=== PATIENT | male | born 1995 | race Two or more races ===

== ENCOUNTER 2017-05-09 14:41 | Emergency (ER) | payer OTHER ==
[2017-05-09 15:18] VITALS: RESP 16; TEMP 98.1
[2017-05-09] MEDS ORDERED: NS 1,000 ML IV ONE (16:06)
[2017-05-09] MEDS ORDERED: HYOSCYAMINE SULFATE 0.125 MG TAB PO ONE (16:06)
[2017-05-09] MEDS ORDERED: MAG HYDROX/AL HYDROX/SIMETH 30 ML UDCUP PO ONE (16:06)
--- NOTE | 2017-05-09 16:11 | EDPHY ---
H & P Stated Complaint: n/v/d 2/ Time Seen by Provider: 05/09/17 16:10 HPI/ROS: HPI: This is a 21-year-old male who presents with Chief Complaint: Nausea vomiting diarrhea Location: GI Quality: Nausea vomiting diarrhea Duration: 2 days Signs and Symptoms: no fever, + nausea, + vomiting, no hematemesis, no blood in stool, no abdominal bloating, + diarrhea, no back pain, no urinary symptoms, no testicular/groin pain, no indigestion, no chest pain, no shortness of breath Timing: Acute, improving Severity: Moderate Context: Patient is a student at presents with complaints of nausea starting Sunday accompanied by vomiting x5 and diarrhea times 10 over the last several days, he reports that his symptoms have improved and he is no longer vomiting for the last 36 hr. His last bowel movement was this morning. Denies any hematemesis/blood in his stool. He reports that his stomach feels ascitic and he gets nauseous when he drinks water. He miss class yesterday and today and is requesting school excuse. No history of abdominal surgery. Currently denies any fever/abdominal pain/testicular pain/dysuria. Denies any recent foreign travel/antibiotic use. Modifying Factors: None Comment: ROS: see HPI Constitutional: No fever, no chills, no weight loss Eyes: No blurred vision Respiratory: No shortness of breath, no cough Cardiovascular: No chest pain, no palpitations Gastrointestinal: + nausea, + vomiting, + diarrhea, no hematemesis, no blood in stool Genitourinary: No dysuria, no blood in urine Extremities: No myalgias, no edema Neurologic: No weakness, no numbness Skin: No rashes, no petechiae Hematologic: No bruising, no bleeding MEDICAL/SURGICAL/SOCIAL HISTORY: Medical history: Generally healthy. Does not take any regular medications. Surgical history: Denies Social history: Student. CONSTITUTIONAL: Extremely well-appearing male, awake and alert, no obvious distress HEENT: Atraumatic and normocephalic, PERRL, EOMI. Tympanic membranes clear. Oropharynx clear, no exudate and moist pink mucosa. Airway patent. No lymphadenopathy. No meningismus. Cardiovascular: Normal S1/S2, regular rate, regular rhythm, without murmur rub or gallop. PULMONARY/CHEST: Symmetrical and nontender. Clear to auscultation bilaterally. Good air movement. No accessory muscle usage. ABDOMEN: Soft, nondistended, nontender, no rebound, no guarding, no peritoneal signs, no masses or organomegaly. No CVAT. EXTREMITIES: 2/2 pulses, strength 5/5, no deformities, no clubbing, no cyanosis or edema. NEUROLOGICAL: no focal neuro deficits. GCS 15. SKIN: Warm and dry, no erythema. no rash. Good capillary refill. Source: Patient Exam Limitations: No limitations - Personal History Current Tetanus/Diphtheria Vaccine: Unsure Current Tetanus Diphtheria and Acellular Pertussis (TDAP): Unsure - Medical/Surgical History Hx Asthma: Yes Hx Chronic Respiratory Disease: No Hx Diabetes: No Hx Cardiac Disease: No Hx Renal Disease: No Hx Cirrhosis: No Hx Alcoholism: No Hx HIV/AIDS: No Hx Splenectomy or Spleen Trauma: No Other PMH: asthma - Social History Smoking Status: Current every day smoker Constitutional: Initial Vital Signs Temperature (C) 36.7 C 05/09/17 15:16 Heart Rate 67 05/09/17 15:16 Respiratory Rate 16 05/09/17 15:16 Blood Pressure 131/81 H 05/09/17 15:16 O2 Sat (%) 97 05/09/17 15:16 O2 Delivery Mode Room Air Allergies/Adverse Reactions: No Known Allergies Allergy (Unverified 05/09/17 15:16) Home Medications: Medication Instructions Recorded Ondansetron Odt [Zofran Odt 4 mg 4 mg PO Q4 PRN #12 tab 05/09/17 (*)] Medical Decision Making ED Course/Re-evaluation: IV fluids, IV medications, oral medications ordered Given 1 L normal saline, p.o. Zofran, p.o. Maalox and Levsin with moderate relief of symptoms Abdomen is soft and nontender without pain. Low yield for surgical abdomen. No indication for imaging. Vital signs reviewed upon arrival in stable. 1655: Reassessed patient: Abdomen is still soft and nontender. Passed p.o. trial prior to discharge. School excuse provided per request. This patient was seen under the supervision of my secondary supervising physician. I evaluated care for this patient independently. Differential Diagnosis: Abdominal pain including but not limited to appendicitis, cholecystitis, gastroenteritis, gastritis and urinary tract infection. - Data Points Medications Given: Discontinued Medications Al Hydroxide/Mg Hydroxide (Maalox Susp) 30 ml PO ONCE ONE Stop: 05/09/17 16:07 Last Admin: 05/09/17 16:17 Dose: 30 ml Hyoscyamine Sulfate (Levsin, Hyomax-Sl) 0.25 mg PO ONCE ONE Stop: 05/09/17 16:07 Last Admin: 05/09/17 16:17 Dose: 0.25 mg Sodium Chloride (Ns) 1,000 mls @ 0 mls/hr IV EDNOW ONE; Wide Open PRN Reason: Protocol Stop: 05/09/17 16:07 Last Admin: 05/09/17 16:13 Dose: 1,000 mls Ondansetron HCl (Zofran) 4 mg IVP EDNOW ONE Stop: 05/09/17 16:20 Last Admin: 05/09/17 16:20 Dose: 4 mg Departure - Departure Disposition: Home, Routine, Self-Care Clinical Impression: Viral gastroenteritis Condition: Good Instructions: Gastroenteritis (ED) Additional Instructions: Consume a minimum of 8-10 glasses of water or electrolyte fluid replacement drinks that include Gatorade, Powerade, Pedialyte. Eat a bland diet for the next 48 hours and then slowly advance as tolerated. Take Zofran 1 tab every 4 hours as needed for nausea, vomiting. Return to the Emergency Room if symptoms do not resolve in the next 48-72 hours , you spike a fever > 102 F, or experience intractable abdominal pain/nausea/ vomiting. Referrals: [facility],. [Clinic] - As per Instructions Stand Alone Forms: School Excuse Prescriptions: Ondansetron Odt [Zofran Odt 4 mg (*)] 4 mg PO Q4 PRN #12 tab PRN Reason: Nausea/Vomiting, Use 1st
[2017-05-09] MEDS ORDERED: ONDANSETRON 4 MG/2 ML VIAL IVP ONE (16:19)
[2017-05-09] MEDS ORDERED: ONDANSETRON 4 MG/2 ML VIAL ONE (16:20)
[2017-05-09 17:22] VITALS: BP 112/64; PULSE 66; O2SAT 98
== END 2017-05-09 17:22 | disposition home or self-care (01) ==
DX: A08.4 Viral intestinal infection, unspecified (principal); E86.9 Volume depletion, unspecified
CPT/HCPCS: 96374; J2405